=== PATIENT | male | born 1965 | race Caucasian/White ===

== ENCOUNTER → 2019-10-08 | Outpatient (CLI) | payer BC, OTHER ==
[~2019-10-08] MED LIST: ASA5UEC PO; BENICAR40 MG PO; COMBIVENT INH; CRESTOR5 MG PO; FISH OIL 1,001000 M1 PO; LIPITOR PO; PAXIL40 MG PO; PLAVIX 75 MG TA75 MG PO; PROTONIX PO; ULTRAM 50MG TAB50 MG PO; XANAX XR1 MG PO
== END ==
LOC: SJCVCIMAG 12:46
PROVIDERS: ATTEND Internal Medicine Cardiovascular Disease
DX: I65.23 Occlusion and stenosis of bilateral carotid arteries (principal); Z86.73 Personal history of transient ischemic attack (TIA), and cerebral infarction without residual deficits

== ENCOUNTER → 2019-11-07 | Outpatient (CLI) | payer OTHER | LOC: RAD 15:34 | PROVIDERS: ATTEND Internal Medicine Cardiovascular Disease | DX: Z13.6 Encounter for screening for cardiovascular disorders (principal); I25.10 Atherosclerotic heart disease of native coronary artery without angina pectoris; E78.00 Pure hypercholesterolemia, unspecified ==

== ENCOUNTER → 2019-11-07 | Outpatient (CLI) | payer BC, OTHER | LOC: SJCVCIMAG 07:56 | PROVIDERS: ATTEND Internal Medicine Cardiovascular Disease | DX: I51.7 Cardiomegaly (principal); I42.9 Cardiomyopathy, unspecified; E11.9 Type 2 diabetes mellitus without complications; F17.200 Nicotine dependence, unspecified, uncomplicated ==

== ENCOUNTER → 2019-12-19 | Outpatient (CLI) | payer BC, OTHER | LOC: SJCVCIMAG 12:45 | PROVIDERS: ATTEND Internal Medicine Cardiovascular Disease | DX: R06.00 Dyspnea, unspecified (principal); I25.10 Atherosclerotic heart disease of native coronary artery without angina pectoris; I10 Essential (primary) hypertension; E11.9 Type 2 diabetes mellitus without complications; E78.5 Hyperlipidemia, unspecified; I25.5 Ischemic cardiomyopathy; F17.200 Nicotine dependence, unspecified, uncomplicated ==